=== PATIENT | female | born 1980 | race Caucasian/White ===

== ENCOUNTER → 2023-12-18 03:04 | Outpatient (CLI) | payer MEDICAID, SELFPAY ==
--- NOTE | 2023-12-18 09:00 | DI.US_ITS ---
Exam(s) US PELVIS TRANSVAGINAL EXAM: US PELVIS TRANSVAGINAL CLINICAL HISTORY: pain, IUD STRING LOST, LT LOWER QUAD PAIN, T83.32XA TECHNIQUE: Transabdominal and transvaginal imaging was performed using standard protocol. COMPARISON: No exams were available for comparison FINDINGS: UTERUS: Anteverted. 8.9 x 4.2 x 5.0 cm Endometrium: 5 mm . the IUD is noted inferiorly positioned in the lower uterine segment and cervix. Myometrium: Unremarkable. Cervix: Unremarkable. OVARIES: Right: Cyst or mass: None. Left: Cyst or mass: None. DOPPLER: Color: Symmetric and uniform flow to both ovaries. No hyperemia. CUL-DE-SAC: Free fluid: None. IMPRESSION: The IUD is positioned low in the lower uterine segment and upper cervix. Unremarkable bilateral ovaries. DATA REPOSITORY:
== END ==
PROVIDERS: PCP Family Medicine; Visit Provider Obstetrics & Gynecology
DX: T83.32XA Displacement of intrauterine contraceptive device, initial encounter (principal); R10.32 Left lower quadrant pain; X58.XXXA Exposure to other specified factors, initial encounter
CPT/HCPCS: 76830; 76856

== ENCOUNTER 2023-12-30 09:56 | Outpatient (CLI) | payer MEDICAID, SELFPAY ==
[2023-12-30 15:57] LABS: HCT 41.4 % (36.0-46.0); HGB 13.8 g/dL (11.2-15.7); MCHC 33.3 % (32.0-36.0); MCV 84 fL (80-95); MPV 10.1 fL (8.0-11.0); Platelet Count 362 10^3/uL (130-400); RBC 4.93 10^6/uL (3.93-5.22); RDW 12.4 % (11.7-14.6); RDW-SD 37.4 fL; WBC 10.11 10^3/uL (4.4-10.8)
== END 2023-12-30 09:57 | disposition home or self-care (01) ==
LOC: LBO 09:56
PROVIDERS: PCP Family Medicine; Visit Provider Obstetrics & Gynecology
DX: T83.32XA Displacement of intrauterine contraceptive device, initial encounter (principal); Z01.818 Encounter for other preprocedural examination; Z01.812 Encounter for preprocedural laboratory examination
CPT/HCPCS: 36415; 81025; 85027; 86850; 86900; 86901

== ENCOUNTER 2024-01-01 08:49 | Day surgery (SDC) | payer MEDICAID, SELFPAY ==
[2024-01-01 09:27] VITALS: BP 143/99; PULSE 71; RESP 16; TEMP 36.4; O2SAT 99
--- NOTE | 2024-01-01 09:37 | W.ANESPRE ---
General Info Date of Service Date Performed: 01/01/24 Height: 5 ft 6 in Weight: 95.5 kg Body Mass Index (BMI): 34.0 Surgical Procedure: Operation Date: 01/01/24 09:10 Proposed Procedure Side Surgeon p Removal & Insertion of IUD Ashia Barrientos DO s Possible Hysteroscopy Ashia Barrientos DO Meds Allergies and Home Medications Allergies Allergy/AdvReac Type Severity Reaction Status Date / Time No Known Allergies Allergy Verified 01/01/24 09:17 Home Medication Medication Instructions Recorded escitalopram oxalate 10 mg tablet 10 mg PO DAILY 02/14/23 (Lexapro) Current Visit Medications: Current Medications Generic Name Dose Route Start Last Admin Trade Name Freq PRN Reason Stop Dose Admin Sodium Chloride 1,000 mls @ 125 mls/hr 01/01/24 06:00 Saline 1000ml Bag IV 01/01/24 23:59 INFUSION CHASITY IV Miscellaneous Supplies 1 each 01/01/24 06:00 Iv Access IV 01/01/24 23:59 DIRECTED CHASITY Sodium Chloride 0 ml 01/01/24 06:00 Normal Saline Flush 10 Ml Syr IV 01/01/24 23:59 PRN PRN Sodium Chloride 0 ml 01/01/24 06:00 Normal Saline 10 Ml Vial IJ 01/01/24 23:59 DIRECTED PRN Sterile Water 0 ml 01/01/24 06:00 Water,Injection,Sterile 10 Ml Vial IJ 01/01/24 23:59 DIRECTED PRN PFSH Active Problems Active Problems: Problem Status Onset Code Left lower quadrant pain R10.32 IUD strings lost T83.32XA Anxiety F41.9 PCOS (polycystic ovarian syndrome) E28.2 Medical History Medical History History of pyloric stenosis as a child repaired surgically Surgical History Surgical History H/O wisdom tooth extraction History of colonoscopy Tobacco Smoking/Tobacco Use Status: Former Tobacco Use Alcohol Alcohol Intake: current Alcohol intake frequency: holidays/special occasions only Alcohol type: hard liquor Substance Use Substance use: Never Prental History History 1 Para 1 Hx # Term Pregnancies Multiple births Hx # Pregnancies 1 Ectopic pregnancies AB induced Hx Number of Living Children 1 AB spontaneous Vital Signs and Lab Results Vital Signs Most Recent Vital Signs in EMR: Most Recent Vital Signs Temp Pulse Resp BP Pulse Ox 36.4 C L 71 16 143/99 H 99 01/01/24 09:27 01/01/24 09:27 01/01/24 09:27 01/01/24 09:27 01/01/24 09:27 Lab Results Blood Type / Crossmatch: Antibody Screen NEGATIVE 12/30/23 Complete Blood Count: White Blood Count 10.11 10^3/uL (4.4-10.8) 12/30/23 15:45 Red Blood Count 4.93 10^6/uL (3.93-5.22) 12/30/23 15:45 Hemoglobin 13.8 g/dL (11.2-15.7) 12/30/23 15:45 Hematocrit 41.4 % (36.0-46.0) 12/30/23 15:45 Platelet Count 362 10^3/uL (130-400) 12/30/23 15:45 Complete Metabolic Panel: No Data to Display Liver Function Panel: No Data to Display Coagulation Panel: No Data to Display Cardiac Panel: No Data to Display Arterial Blood Gas: No Data to Display Venous Blood Gas: No Data to Display Pancreas Panel: No Data to Display Thyroid Panel: No Data to Display Infectious Disease: No Data to Display Blood Cultures: No Data to Display Toxicology Panel: No Data to Display Panel: No Data to Display Anesthesia Assessment and Plan Anesthesia History Personal History: No History of Anesthesia Complications Family History: No Family History of Anesthesia Complications Exercise Tolerance Exercise Tolerance: Metabolic Equivalents>4 Pertinent Negatives Pertinent Negatives: No Symptoms of GERD, No Major Cardiovascular Symptoms or Complaints and No Major Pulmonary Symptoms or Complaints Cardiac & Pulmonary Exam Cardiac Exam: Normal S1/S2 Heart Sounds Pulmonary Exam: Clear Bilateral Breath Sounds Implantable Cardiac Device Does patient have a Pacemaker or an ICD?: No Airway Exam Known Difficult Airway: No Mallampati Class: 1 Mouth Opening: Normal (> 3cm) Thyromental Distance: Greater than 3 cm Neck Range of Motion: Full ROM Neck Circumference: Normal Teeth Condition: Normal Dentition ASA Classification ASA Score: ASA 2 Emergency Case?: No NPO Status NPO Status: NPO Clears >2 hours, Solids >8 hours Status Status: Negative HCG Anesthesia Plan Resuscitation Status: Full Code Anesthesia Technique: MAC Anesthesia Airway Planned: Natural Airway Monitors Used: Standard Monitors
[2024-01-01 09:39] VITALS: BMI 34.0
[2024-01-01] MEDS: Normal Saline 1,000 ML 125 ML IV (09:45)
--- NOTE | 2024-01-01 10:35 | ROE_ITS ---
Date of service: 01/01/24 Time of Service: 10:35 Operative Note Operative Note DATE OF PROCEDURE: 01/01/24 PRE-OP DIAGNOSIS: IUD in situ, strings not visualized, contraceptive management POST-OP DIAGNOSIS: same PROCEDURE: Removal of Mirena system with replacement of new device SURGEON: Ashia Barrientos ANESTHESIA TYPE: MAC Refer to Anesthesia Record PATHOLOGY: none sent COMPLICATIONS: None Implants: Mirena IUD expiration 02/15/2026 Lot # [id number] Indications: IUD strings not visualized, ultrasound confirming IUD in the lower uterine segment. Patient desires replacement of her Mirena system. Full informed consent was obtained. Findings: Visual absence of IUD strings. IUD removed without difficulty. Procedure Description: Patient is a 43-year-old female who has an IUD in situ. Her strings were nonvisualized. Ultrasound confirmed IUD within the lower uterine segment. For this reason, removal was indicated. Patient desires replacement of her Mirena system for contraceptive management, and cycle control. Risk benefits and alternatives were discussed. Full informed consent was obtained. Patient was taken the operating suite with an IV running where she was placed in the supine position. Anesthesia administered via monitored anesthesia care. She was then placed in the modified dorsolithotomy position in [facility]. Speculum inserted into the vaginal vault and the cervical os to cleansed with Betadine. There was no visualization of the IUD strings as previous. A single-tooth tenaculum was used to grasp the anterior lip of the cervix for stabilization. A Lainey forcep was placed into the cervical canal and the IUD identified, grasped, and removed in toto. At this point a new Mirena device was inserted. Mirena inserted through the cervical os to the fundus and deployed appropriately. Strings cut to 3 cm. Tenaculum was removed and pu ncture sites were hemostatic. Speculum was removed and patient was returned to the dorsal supine position. She woke from anesthesia without difficulty. She was taken to same-day surgery in stable condition. EBL: 5 mL Fluids: Crystalloid per anesthesia Complications: None apparent Implants, Mirena IUD system expiration 02/15/2026. Pathology: None sent
[2024-01-01 10:43] VITALS: BP 121/82; PULSE 70; RESP 16; TEMP 36.6; O2SAT 93
--- NOTE | 2024-01-01 10:59 | W.ANESPOSTOP ---
Postoperative Evaluation Date, Time and Location Date Performed: 01/01/24 Time Performed: 11:00 Patient Location: Day Surgery Unit Vital Signs Most Recent Imported Vital Signs: Most Recent Vital Signs Temp Pulse Resp BP Pulse Ox 36.6 C 70 16 121/82 93 01/01/24 10:43 01/01/24 10:43 01/01/24 10:43 01/01/24 10:43 01/01/24 10:43 Pain Score Most Recent Pain Score: Most Recent Pain Score Pain Level 0 01/01/24 10:43 Assessment Mental Status: Awake (Alert & Oriented to Patient Baseline) Airway and Respiratory Function: Patent airway with normal (patient baseline) respiratory exam Cardiovascular Function: Hemodynamically Stable Hydration Status: Adequately Hydrated Nausea & Vomiting: No Nausea or Vomiting Pain: Pt. Denies Any Pain Peripheral Nerve Block: Patient did not receive a nerve block
[2024-01-01 11:14] VITALS: BP 130/80; PULSE 57; RESP 16; TEMP 36.2; O2SAT 97
== END 2024-01-01 11:31 | disposition home or self-care (01) ==
PROVIDERS: PCP Family Medicine; Visit Provider Obstetrics & Gynecology
PROC: (CPT 58300; principal; 2024-01-01 09:00)
DX: T83.32XA Displacement of intrauterine contraceptive device, initial encounter (principal); F41.9 Anxiety disorder, unspecified
CPT/HCPCS: 58300; 58301; J7298; J1885; J2001; J2250; J2405; J2704

== ENCOUNTER 2025-03-23 14:05 | Outpatient (REF) | payer BC, SELFPAY ==
--- NOTE | 2025-03-23 14:00 | PAPFT_PTH ---
PATIENT: Ida Kong LOC: GERA U#:[id number] AGE/SX: 44/F ROOM: RE03/23/[address]: Ashia Barrientos DO : 1980 BED: DIS: 03/23/2025 SPEC #: [id number] RECD: 03/23/25 17:49 STATUS: MARITA REQ #: [id number] JOHANN: 03/23/25 14:[address]: Ashia Barrientos DEPT: [facility] Cytology RECD BY: Naty Mark ENTERED: 03/23/25 17:50 SP TYPE: PAPFT OTHR DR: DANTE ZURITA Tissues: 1 - CX/ENDOCX FOR PAP SMEARS Procedures: PAP THIN PREP/[facility] Screening HPV DNA PROBE Comments: [id number] (HPV 16 & 18/45)
== END 2025-03-23 14:06 | disposition home or self-care (01) ==
LOC: LBN 14:05
PROVIDERS: PCP Family Medicine; Visit Provider Obstetrics & Gynecology
DX: Z12.4 Encounter for screening for malignant neoplasm of cervix (principal)
CPT/HCPCS: 88142; 87624

== ENCOUNTER 2025-04-12 13:55 | Outpatient (REF) | payer BC, SELFPAY ==
--- NOTE | 2025-04-12 13:10 | ENDO_PTH ---
PATIENT: Ida Kong LOC: N U#:[id number] AGE/SX: 44/F ROOM: RE04/12/[address]: Ashia Barrientos DO : 1980 BED: DIS: 04/12/2025 SPEC #: [id number] RECD: 04/12/25 17:44 STATUS: MARITA REQ #: [id number] JOHANN: 04/12/25 13:[address]: Ashia Barrientos DEPT: Surgical Specimen RECD BY: Naty Mark ENTERED: 04/12/25 17:45 SP TYPE: Endo OTHR DR: Cricket Gusman NP Tissues: 1 - ENDOCERVICAL BX/CURRETTE Procedures: GROSS AND MICRO LEVEL 4 Comments: [id number]
== END 2025-04-12 13:56 | disposition home or self-care (01) ==
LOC: LBN 13:55
PROVIDERS: Visit Provider Obstetrics & Gynecology
DX: D26.0 Other benign neoplasm of cervix uteri (principal)
CPT/HCPCS: 88305